=== PATIENT | male | born 1960 | race Caucasian/White ===

== ENCOUNTER 2016-08-26 09:51 | Day surgery (SDC) | payer BC ==
[~2016-08-26] VITALS: Ht 175.3 cm; Wt 71.4 kg
[~2016-08-26 09:51] MED LIST: LACTATED RINGERS 1,000 ML IV SCH; SODIUM CHLORIDE FLUSH 3 ML SYR IV PRN
[2016-08-26 09:59] VITALS: BP 119/75
[2016-08-26] MEDS ORDERED: SIMETHICONE 40 MG/0.6 ML (MYLICON DROPS) ORAL SYRINGE ONE (10:08)
[2016-08-26] MEDS ORDERED: LIDOCAINE 4% TOPICAL 4.5 ML SYR ONE (10:08)
[2016-08-26] MEDS ORDERED: PROPOFOL 20 ML IV ONE (10:46)
[2016-08-26] MEDS ORDERED: ALFENTANIL 500 MCG/ML (ALFENTA) 5 ML AMP IV ONE ×2 (10:46→10:47)
[2016-08-26] MEDS ORDERED: MIDAZOLAM 2 MG/2 ML (VERSED) VIAL ONE (10:47)
[2016-08-26 12:06] VITALS: BP 125/76
[2016-08-26 12:34] VITALS: BP 114/62
== END 2016-08-26 12:37 | disposition home or self-care (01) ==
LOC: ASC 09:51
PROVIDERS: ATTEND Surgery
DX: Z12.11 Encounter for screening for malignant neoplasm of colon (principal); K21.0 Gastro-esophageal reflux disease with esophagitis; K31.7 Polyp of stomach and duodenum; K57.30 Diverticulosis of large intestine without perforation or abscess without bleeding; K22.70 Barrett's esophagus without dysplasia; D12.6 Benign neoplasm of colon, unspecified; Z80.0 Family history of malignant neoplasm of digestive organs
CPT/HCPCS: 43239; 43251; 45381; 45385; J2250; J7120